=== PATIENT | male | born 1970 ===

== ENCOUNTER 2018-02-26 09:59 | Day surgery (SDC) | payer OTHER ==
[~2018-02-26] VITALS: Ht 165.1 cm; Wt 82.8 kg
[2018-02-26] MEDS ORDERED: fentaNYL INJECTION 100 MCG/2 ML AMP ONE (10:12)
[2018-02-26 10:23] LABS: HEMOGLOBIN 15.5 G/DL (13.3-17.7); MEAN PLATELET VOLUME 9.5 FL (7.4-10.4); RED BLOOD COUNT 4.81 10^6/uL (4.35-5.85); RED CELL DISTRIBUTION WIDTH 13.8 % (10.0-14.5); WHITE BLOOD COUNT 6.7 10^3/uL (4.3-11.0)
[2018-02-26] MEDS ORDERED: CLINDAMYCIN 900 MG/50 ML IVPB 50 ML IV ONE (10:30)
[2018-02-26] MEDS ORDERED: fentaNYL INJECTION 100 MCG/2 ML AMP IVP ONE (10:30)
--- NOTE | 2018-02-26 10:30 | ED Trauma-Multisystem ---
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 The saw blade kicked back and struck him in the face causing injury to the nose, upper lip, lower lip, and teeth. The lips are gaping from the large lacerations. He denies any loss of consciousness. He has no vision changes, nausea, or neck injury. He denies injury anywhere other than his face. Type I trauma activation was paged due to the extensive tissue injury to the face. Occurred: Just Prior to Arrival Allergies and Home Medications Allergies Coded Allergies: No Known Drug Allergies (Unverified , 02/26/18) Home Medications Amoxicillin/Potassium Clav 1 Each Tablet, 1 EACH PO BID Prescribed by: LILIA ODOM on 02/26/18 165 Docusate Sodium 100 Mg Capsule, 100 MG PO DAILY Prescribed by: LILIA ODOM on 02/26/18 1650 Hydrocodone/Acetaminophen 1 Each Tablet, 1 EACH PO Q4H Prescribed by: LILIA ODOM on 02/26/18 1650 Patient Home Medication List Home Medication List Reviewed: Yes Review of Systems Constitutional: no symptoms reported Eyes: No Symptoms Reported Ears: No Symptoms Reported Nose: See HPI Mouth: See HPI Throat: No Symptoms to Report Respiratory: no symptoms reported Cardiovascular: No Symptoms Reported Gastrointestinal: no symptoms reported Genitourinary: no symptoms reported Musculoskeletal: see HPI Skin: see HPI Psychiatric/Neurological: No Symptoms Reported Past Laibjcv-Pqujsx-Zdzxtx Hx Past Med/Social Hx: Reviewed and Corrections made Past Medical History Surgeries: No Respiratory: No Cardiac: No Neurological: No Reproductive Disorders: No Gastrointestinal: No Musculoskeletal: No Endocrine: No HEENT: No Cancer: No Psychosocial: No Integumentary: No Physical Exam Height, Weight, BMI Height: '" Weight: lbs. oz. kg; BMI Method: General Appearance: WD/WN, Mild Distress Head: Other (large laceration extending from the cartilaginous tissue of the right nose through the upper and lower lips. The upper and lower lips are completely from a vertical laceration. There is also damage to the upper and lower incisors. Wounds are bloody but there is no significant active bleeding at this time.) Eyes: Bilateral Eye Normal Inspection, Bilateral Eye PERRL, Bilateral Eye EOMI Ears, Nose, Throat: Hearing Grossly Normal, Dental Injury Neck: Normal Inspection, Non Tender, Supple Cardiovascular: Regular Rate, Rhythm, No Edema, No Murmur Respiratory: Lungs Clear, Normal Breath Sounds, No Accessory Muscle Use, No Respiratory Distress Gastrointestinal: Non Tender, Soft Extremity: Normal Capillary Refill, Normal Inspection, Non Tender Neurologic/Psychiatric: Alert, Oriented x3, No Motor/Sensory Deficits, Normal Mood/Affect, solar tech II-XII Norm as Tested Skin: Normal Color, Warm/Dry Progress/Results/Core Measures Results/Orders Lab Results Laboratory Tests Test 02/26/18 10:10 Range/Units White Blood Count 6.7 4.3-11.0 10^3/uL Red Blood Count 4.81 4.35-5.85 10^6/uL Hemoglobin 15.5 13.3-17.7 G/DL Hematocrit 43 40-54 % Mean Corpuscular Volume 90 80-99 FL Mean Corpuscular Hemoglobin 32 25-34 PG Mean Corpuscular Hemoglobin Concent 36 32-36 G/DL Red Cell Distribution Width 13.8 10.0-14.5 % Platelet Count 285 130-400 10^3/uL Mean Platelet Volume 9.5 7.4-10.4 FL Sodium Level 137 135-145 MMOL/L Potassium Level 3.7 3.6-5.0 MMOL/L Chloride Level 106 98-107 MMOL/L Carbon Dioxide Level 23 21-32 MMOL/L Anion Gap 8 5-14 MMOL/L Blood Urea Nitrogen 17 7-18 MG/DL Creatinine 0.94 0.60-1.30 MG/DL Estimat Glomerular Filtration Rate > 60 BUN/Creatinine Ratio 18 Glucose Level 122 H 70-105 MG/DL Calcium Level 9.1 8.5-10.1 MG/DL Total Bilirubin 0.9 0.1-1.0 MG/DL Direct Bilirubin 0.3 0.0-0.3 MG/DL Indirect Bilirubin 0.6 MG/DL Aspartate Amino Transf (AST/SGOT) 23 5-34 U/L Alanine Aminotransferase (ALT/SGPT) 22 0-55 U/L Alkaline Phosphatase 55 40-136 U/L Total Protein 7.4 6.4-8.2 GM/DL Albumin 4.4 3.2-4.5 GM/DL Serum Alcohol < 10 <10 MG/DL My Orders Orders - MARIANO CHANCE MD Fentanyl Injection (Sublimaze Injection (02/26/18 10:12) Cbc No Diff (02/26/18 10:16) Basic Metabolic Panel (02/26/18 10:16) Liver Panel (02/26/18 10:16) Alcohol (02/26/18 10:16) Type And Screen (02/26/18 10:16) Chest 1 View, Ap/Pa Only (02/26/18 10:16) End Tidal Co2 (02/26/18 10:16) Monitor-Rhythm Ecg Trace Only (02/26/18 10:16) Saline Lock/Iv-Start (02/26/18 10:16) Fentanyl Injection (Sublimaze Injection (02/26/18 10:30) Ct Head/Face/Cervical Wo (02/26/18 10:16) Clindamycin 900 Mg/50 Ml Ivpb (Cleocin P (02/26/18 10:30) Ns (Ivpb) (Sodium C... W/Tranexamic Acid (02/26/18 10:45) Tranexamic Acid Injection (Cyklokapron I (02/26/18 10:45) Lidocaine 1% Inj 20 Ml (Xylocaine 1% Inj (02/26/18 11:06) Bupivacaine 0.25% Injection (Sensorcaine (02/26/18 11:06) Succinylcholine Injection (Succinylcholi (02/26/18 11:41) Rocuronium 5 Ml Syringe (Rocuronium 5 Ml (02/26/18 11:41) Propofol Injection (Diprivan Injection) (02/26/18 11:41) Dexamethasone Injection (Decadron Inject (02/26/18 11:41) Ondansetron Injection (Zofran Injectio (02/26/18 11:41) Lidocaine 2% Pf 5 Ml (Xylocaine 2% Pf) (02/26/18 11:41) Sevoflurane (15 Min) Inhal Edwige (Ultane ( (02/26/18 11:41) Midazolam Injection (Versed Injection) (02/26/18 11:41) Fentanyl Injection (Sublimaze Injection (02/26/18 11:42) Cefazolin Injection (Ancef Injection) (02/26/18 11:55) Ns (Ivpb) (Sodium Chloride 0.9% Ivpb Bag (02/26/18 11:55) Progress Progress Note : Time: 10:31 Progress Note Type I trauma activation was paged. Dr. Guo and Dr. Odom presented immediately to the emergency room. Patient was assessed. Moist dressings were placed over the wounds. Patient was interviewed using business services sales agent. Patient was sent to CT and x-ray. TXA will be administered. Surgery is anticipated after review of the CT. Dr. Brown was contacted and is not available today. Dr. Bowden is out of town. Patient received fentanyl for pain. Clindamycin will be given for initial antibiotic prophylaxis. Patient was reportedly up-to- date on his tetanus. Diagnostic Imaging Diagonstic Imaging: CT Plain Films/CT/US/NM/MRI: facial bones, c-spine, head Comments CT of the head, face, and cervical spine viewed by me and report reviewed. See report below: NAME: ERICKSON EPPS [facility] REC#: [id number] PT STATUS: REG [facility] [place] : 1970 PHYSICIAN: MARIANO CHANCE MD ADMIT DATE: 02/26/18/[facility] [place] Signed Date of Exam: 02/26/18 CT HEAD/FACE/CERVICAL WO PROCEDURE: CT head, face, and cervical spine without contrast. TECHNIQUE: Multiple contiguous axial images were obtained through the head, neck, and facial bones without the use of intravenous contrast. Sagittal and coronal reformations through the cervical spine and facial bones were also performed. INDICATION: Saw injury to the face. No prior studies are available for comparison. CT head: Ventricles and sulci are within normal limits. No sulcal effacement, midline shift or hemorrhage is detected. The cisterns are patent. Visualized paranasal sinuses are clear. IMPRESSION: No acute intracranial process is detected. CT cervical spine: Curvature and alignment is normal. There is generalized degenerative disc disease with variable disc space narrowing and marginal spurring. No fracture is identified. The odontoid is intact. IMPRESSION: No acute bony abnormality is detected. CT face: The mandible is intact. The zygomatic arches are intact. Maxillary sinus belle and orbital belle appear intact. There is midline soft tissue defect that commences at the level of the mandible and extends cephalad. There appears to be a fracture a midline mandibular tooth. There may also be a fracture of a right paramidline maxillary tooth. The anterior nasal spine and hard palate are intact. Nasal septum is intact. There appears to be a tiny chip fracture of right nasal bone. Soft tissue injury extends to the right nares. Both globes are intact. IMPRESSION: Midline soft tissue injury from the chin to the nose with fracture maxillary and mandibular teeth. No other facial bone fractures are identified. Dictated by: Dictated on workstation # [id number] Dict: 02/26/18 1058 Trans: 02/26/18 1509 Interpreted by: GABRIELA ACKERMAN MD Electronically signed by: GABRIELA ACKERMAN MD 02/26/18 1509 Diagonstic Imaging: Xray Plain Films/CT/US/NM/MRI: chest Comments NAME: ERICKSON EPPS [facility] REC#: [id number] PT STATUS: REG [facility] [place] : 1970 PHYSICIAN: MARIANO CHANCE MD ADMIT DATE: 02/26/18/[facility] [place] Signed Date of Exam: 02/26/18 CHEST 1 VIEW, AP/PA ONLY INDICATION: Injury. FINDINGS: An upright portable view of the chest was obtained. The heart size is normal. The pulmonary vessels appear unremarkable. There is no pneumothorax, mediastinal widening, or pleural fluid. The lungs are clear. IMPRESSION: Negative chest. Dictated by: Dictated on workstation # [id number] Dict: 02/26/18 1049 Trans: 02/26/18 1253 Interpreted by: SUZE MOLINA DO Electronically signed by: SUZE MOLINA DO 02/26/18 1253 Departure Communication (Admissions) Time/Spoke to Admitting Phy: 10:10 Impression Primary Impression: Facial laceration Qualified Codes: S01.81XA - Laceration without foreign body of other part of head, initial encounter Additional Impression: Fractured tooth Qualified Codes: S02.5XXB - Fracture of tooth (traumatic), initial encounter for open fracture Disposition: ADMITTED INPATIENT Condition: Improved Admissions Decision to Admit Reason: Admit from ER (Trauma) Decision to Admit/Date: Feb 26, 2018 Time/Decision to Admit Time: 10:10 Departure-Patient Inst. Referrals: NO,LOCAL PHYSICIAN (PCP/Family) Primary Care Physician Scripts Docusate Sodium (Colace) 100 Mg Capsule 100 MG PO DAILY, #30 CAP Prov: LILIA ODOM DO 02/26/18 Hydrocodone/Acetaminophen (Vicodin 5-300 mg Tablet) 1 Each Tablet 1 EACH PO Q4H, #30 TAB Prov: LILIA ODOM DO 02/26/18 Amoxicillin/Potassium Clav (Augmentin 875-125 Tablet) 1 Each Tablet 1 EACH PO BID, #20 TAB Prov: LILIA ODOM DO 02/26/18 MARIANO CHANCE MD Feb 26, 2018 10:30
[2018-02-26 10:43] LABS: ALANINE AMINOTRANSFERASE 22 U/L (0-55); ALBUMIN 4.4 GM/DL (3.2-4.5); ALKALINE PHOSPHATASE 55 U/L (40-136); BILIRUBIN,DIRECT 0.3 MG/DL (0.0-0.3); BILIRUBIN,INDIRECT 0.6 MG/DL; BILIRUBIN,TOTAL 0.9 MG/DL (0.1-1.0); BUN/CREATININE RATIO 18; CALCIUM 9.1 MG/DL (8.5-10.1); CARBON DIOXIDE 23 MMOL/L (21-32); CHLORIDE 106 MMOL/L (98-107); CREATININE SERUM 0.94 MG/DL (0.60-1.30); GFR ESTIMATED > 60; GLUCOSE 122 MG/DL (70-105); POTASSIUM 3.7 MMOL/L (3.6-5.0); SODIUM 137 MMOL/L (135-145); TOTAL PROTEIN 7.4 GM/DL (6.4-8.2)
[2018-02-26] MEDS ORDERED: TRANEXAMIC ACID INJECTION 1,000 MG in NS (IVPB) 250 ML IV SCH (10:45)
[2018-02-26] MEDS ORDERED: TRANEXAMIC ACID INJECTION 1,000 MG in D5W 100 ML IVPB 100 ML IV ONE (10:45)
--- NOTE | 2018-02-26 10:52 | Diagnostic Imaging Report ---
INDICATION: Injury. FINDINGS: An upright portable view of the chest was obtained. The heart size is normal. The pulmonary vessels appear unremarkable. There is no pneumothorax, mediastinal widening, or pleural fluid. The lungs are clear. IMPRESSION: Negative chest. Dictated by: Dictated on workstation # [id number]
--- NOTE | 2018-02-26 11:05 | Diagnostic Imaging Report ---
PROCEDURE: CT head, face, and cervical spine without contrast. TECHNIQUE: Multiple contiguous axial images were obtained through the head, neck, and facial bones without the use of intravenous contrast. Sagittal and coronal reformations through the cervical spine and facial bones were also performed. INDICATION: Saw injury to the face. No prior studies are available for comparison. CT head: Ventricles and sulci are within normal limits. No sulcal effacement, midline shift or hemorrhage is detected. The cisterns are patent. Visualized paranasal sinuses are clear. IMPRESSION: No acute intracranial process is detected. CT cervical spine: Curvature and alignment is normal. There is generalized degenerative disc disease with variable disc space narrowing and marginal spurring. No fracture is identified. The odontoid is intact. IMPRESSION: No acute bony abnormality is detected. CT face: The mandible is intact. The zygomatic arches are intact. Maxillary sinus belle and orbital belle appear intact. There is midline soft tissue defect that commences at the level of the mandible and extends cephalad. There appears to be a fracture a midline mandibular tooth. There may also be a fracture of a right paramidline maxillary tooth. The anterior nasal spine and hard palate are intact. Nasal septum is intact. There appears to be a tiny chip fracture of right nasal bone. Soft tissue injury extends to the right nares. Both globes are intact. IMPRESSION: Midline soft tissue injury from the chin to the nose with fracture maxillary and mandibular teeth. No other facial bone fractures are identified. Dictated by: Dictated on workstation # [id number]
[2018-02-26] MEDS ORDERED: LIDOCAINE 1% INJ 20 ML 20 ML VIAL ONE (11:06)
[2018-02-26] MEDS ORDERED: BUPIVACAINE 0.25% 30 ML (SENSORCAINE) VIAL ONE (11:06)
[2018-02-26] MEDS: LACTATED RINGERS 1,000 ML IV PRN ×4 (11:30→14:35)
[2018-02-26] MEDS ORDERED: ROCURONIUM 10 MG/ML 5 ML SYRINGE IV ONE (11:41)
[2018-02-26] MEDS ORDERED: SEVOFLURANE (ULTANE) 15 ML INHAL SOLN ONE ×4 (11:41→13:59)
[2018-02-26] MEDS ORDERED: SUCCINYLCHOLINE INJ 100 MG/5 ML SYR ONE (11:41)
[2018-02-26] MEDS ORDERED: proPOfol 200 MG/20 ML (DIPRIVAN) VIAL IV ONE (11:41)
[2018-02-26] MEDS ORDERED: MIDAZOLAM 2 MG/2 ML (VERSED) VIAL ONE (11:41)
[2018-02-26] MEDS ORDERED: DEXAMETHASONE 10 MG/ML (DECADRON) 1 ML VIAL ONE (11:41)
[2018-02-26] MEDS ORDERED: LIDOCAINE PF 2% 5 ML (XYLOCAINE) VIAL ONE (11:41)
[2018-02-26] MEDS ORDERED: ONDANSETRON 4 MG/2 ML (SDV) Z0FRAN ONE (11:41)
[2018-02-26] MEDS ORDERED: fentaNYL INJECTION 250 MCG/5 ML AMP ONE (11:42)
[2018-02-26] MEDS ORDERED: NS (IVPB) 100 ML ONE (11:55)
[2018-02-26] MEDS ORDERED: ceFAZolin 1,000 MG (ANCEF) VIAL ONE (11:55)
--- NOTE | 2018-02-26 12:08 | History & Physical-Surgical ---
History of Present Illness History of Present Illness Reason for visit/HPI Level 1 Trauma seen and evaluated in ED. Injury occurred just prior to arrival. 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 It bounced back and struck him in the face while using it. Caused laceration from chin up to nose. Teeth at midline fractured. No loss of consciousness. No neck injury. No complaint of pain except pain on face which is moderate. Chest x ray negative, and ct head neck and face demonstrating no acute fractures except fracture of maxillary and mandibular teeth fracture, Negative ct c spine and head. Date of Admission T Date Seen by Provider: Feb 26, 2018 Time Seen by Provider: 10:09 I consulted on this patient on 02/26/18 10:09 Attending Physician Admitting Physician No,Local Physician Consult Allergies and Home Medications Allergies Coded Allergies: No Known Drug Allergies (Unverified , 02/26/18) Patient Home Medication List Home Medication List Reviewed: Yes Past Kfuaqio-Fxoovd-Bgnqpb Hx Patient Social History Alcohol Use: Denies Use Recreational Drug Use: No Smoking Status: Never a Smoker Surgeries History of Surgeries: No Respiratory History of Respiratory Disorde: No Cardiovascular History of Cardiac Disorders: No Neurological History of Neurological Disord: No Reproductive System Hx Reproductive Disorders: No Gastrointestinal History of Gastrointestinal Di: No Musculoskeletal History of Musculoskeletal Dis: No Endocrine History of Endocrine Disorders: No HEENT History of HEENT Disorders: No Cancer History of Cancer: No Psychosocial History of Psychiatric Problem: No Integumentary History of Skin or Integumenta: No Family Medical History Significant Family History: No Pertinent Family Hx Constitutional: no symptoms reported EENTM: no symptoms reported Respiratory: no symptoms reported Cardiovascular: no symptoms reported Gastrointestinal: no symptoms reported Genitourinary: no symptoms reported Musculoskeletal: see HPI Skin: see HPI Psychiatric/Neurological: No Symptoms Reported Physical Exam Vital Signs Capillary Refill : Height, Weight, BMI Height: '" Weight: lbs. oz. 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 Norm as Tested Skin: Normal Color (skin lacerations complex nose down to chin) Lymphatic: No Adenopathy Data Review Labs Laboratory Tests 02/26/18 10:10: White Blood Count 6.7, Red Blood Count 4.81, Hemoglobin 15.5, Hematocrit 43, Mean Corpuscular Volume 90, Mean Corpuscular Hemoglobin 32, Mean Corpuscular Hemoglobin Concent 36, Red Cell Distribution Width 13.8, Platelet Count 285, Mean Platelet Volume 9.5, Sodium Level 137, Potassium Level 3.7, Chloride Level 106, Carbon Dioxide Level 23, Anion Gap 8, Blood Urea Nitrogen 17, Creatinine 0.94, Estimat Glomerular Filtration Rate > 60, BUN/Creatinine Ratio 18, Glucose Level 122H, Calcium Level 9.1, Total Bilirubin 0.9, Direct Bilirubin 0.3, Indirect Bilirubin 0.6, Aspartate Amino Transf (AST/SGOT) 23, Alanine Aminotransferase (ALT/SGPT) 22, Alkaline Phosphatase 55, Total Protein 7.4, Albumin 4.4, Serum Alcohol < 10 Assessment/Plan Assessment/Plan Admission Diagonsis complex facial laceration right nose to chin fracture of maxillary and mandibular teeth concrete saw striking face level 1 Trauma Admission Status: Observation Assessment/Plan complex facial laceration right nose to chin fracture of maxillary and mandibular teeth concrete saw striking face ct head face and neck with above findings discussed risks and benefits of repair of complex facial laceration ENT and Maxillofacial unavailable. Patient understands may need further specialist surgical intervention at later date. Patient in agreement with plan. LILIA ODOM DO Feb 26, 2018 12:08
[2018-02-26] MEDS ORDERED: BSS 15 ML ONE (12:35)
[2018-02-26] MEDS ORDERED: GLYCOPYRROLATE 0.2 MG/ML (ROBINUL) 2 ML VIAL ONE (13:15)
[2018-02-26] MEDS ORDERED: PHENYLEPHRINE 100 MCG/ML 10 ML (ANESTHESIA) SYR ONE (13:16)
[2018-02-26] MEDS ORDERED: ARTIFICIAL TEARS OINT (LACRI-LUBE) 3.5 GM TUBE ONE (13:17)
[2018-02-26] MEDS ORDERED: METOCLOPRAMIDE INJ 10 MG/2 ML (REGLAN) ONE (13:34)
[2018-02-26] MEDS ORDERED: NEO/POLY/BAC (NEOSPORIN) OINT 15 GM TUBE ONE (13:50)
[2018-02-26] MEDS ORDERED: fentaNYL INJECTION 100 MCG/2 ML AMP IVP PRN (14:15)
[2018-02-26] MEDS ORDERED: ONDANSETRON 4 MG/2 ML (SDV) Z0FRAN IVP PRN (14:15)
[2018-02-26] MEDS: HYDROmorphone 1 MG/ML (DILAUDID) 1 ML SYRINGE IV PRN ×4 (14:26→14:56)
--- NOTE | 2018-02-26 15:15 | Anesthesia-General Post-Op ---
General Patient Condition Mental Status/LOC: Same as Preop Cardiovascular: Satisfactory Nausea/Vomiting: Absent Respiratory: Satisfactory Pain: Controlled Complications: Absent Post Op Complications Complications None Follow Up Care/Instructions Patient Instructions None needed. Anesthesia/Patient Condition Patient Condition Patient is doing well, no complaints, stable vital signs, no apparent adverse anesthesia problems. No complications reported per nursing. JOSE GRAY CRNA Feb 26, 2018 15:15
[2018-02-26 15:35] VITALS: BP 135/78
[2018-02-26] MEDS ORDERED: morphine INJ 4 MG/ML 1 ML (VIAL/SYRINGE) IVP PRN (16:45)
[2018-02-26] MEDS ORDERED: HYDROcodone/APAP 5 MG/325 MG (LORTAB) TAB PO PRN (16:45)
[2018-02-26] MEDS ORDERED: DOCU-143 PO (16:50)
[2018-02-26] MEDS ORDERED: HYDR-3454 PO (16:50)
[2018-02-26] MEDS ORDERED: AMOX-358 PO (16:50)
--- NOTE | 2018-02-26 16:58 | Discharge Inst-Simple/Standard ---
Discharge Inst-Standard Discharge Medications New, Converted or Re-Newed RX: RX on Chart Patient Instructions/Follow Up Plan of Care/Instructions/FU: [address] Morley Consult with Dr. Brown or other maxillofacial surgeon of your choice for Dental repair. Do not blow your nose. Do not place anything in your nose. Place tripple antibiotics over lacerations on the outside. Full liquid diet for 3 days then advance to soft diet as tolerates. Activity as Tolerated: No Discharge Diet: Liquid Diet Other Inst to Patient Follow up Appt: Make appointment for 1 week (march 05) Dr. Morley Follow up with Dr. Brown or maxillofacial surgeon of your choice in regards to dental needs. Instructions: No lifting greater than 10 pounds. No strenuous activity. May shower in 24 hours, no tub bath or soaking. Use incentive spirometer at home as directed. No Smoking Skin/Wound Care: Keep clean and dry. Symptoms to Report: Appetite Changes, Extremity Discoloration, Numbness/Tingling, Swelling Increased , Bleeding Excessive, Eyesight Changes, Pain Increased, Urine Color Change, Constipation(Persistent), Fever over 101 degree F, Pain/Pressure in chest, Urinating Difficulty, Cough Up/Vomit Blood, Heart Beat Irreg/Pounding, Pain/ Pressure in jaw, Vaginal Bleeding Increase, Cramps in feet or legs, Lightheadedness, Pain/Pressure in shoulder, Diarrhea(Persistent), Memory Changes Suddenly, Questions/Concerns, Weight gain consecutive days, Dizziness/ Fainting, Nausea/Vomiting, Shortness of Breath, Weight gain over 2 pounds If questions or concerns contact your physician Or seek help at emergency department. LILIA MORLEY DO Feb 26, 2018 16:57
[2018-02-26 19:51] VITALS: BP 125/77
[2018-02-26] MEDS: CLINDAMYCIN 600 MG/50 ML IVPB 50 ML IV SCH (21:27)
--- NOTE | 2018-02-26 22:37 | Progress Note-Post Operative ---
Post-Operative Progess Note Surgeon (s)/Hay Rake Operator (s) Surgeon LILIA ODOM DO Hay Rake Operator: na Pre-Operative Diagnosis complex facial laceration Post-Operative Diagnosis complex facial laceration, fracture maxillary and mandibular teeth Procedure & Operative Findings Date of Procedure 02/26/18 Procedure Performed/Findings reconstruction right nose with skin length 5 cm layered closure, maxillary laceration repair inner oral length 2.5 cm, skin length 2.5 cm c layered closure , mandibular soft tissue removal foreign body, mandibular inner laceration repair 3.25 cm outer skin reparir 3.5 cm layered, partial extraction tooth #41 Anesthesia Type general Estimated Blood Loss Estimated blood loss (mL): min Specimens/Packing Specimens Removed LILIA Bauman DO Feb 26, 2018 22:37
[2018-02-27 00:13] VITALS: BP 121/72
[2018-02-27 03:47] VITALS: BP 111/60
[2018-02-27] MEDS: CLINDAMYCIN 600 MG/50 ML IVPB 50 ML IV SCH (05:55)
[2018-02-27 08:00] VITALS: BP 115/69
--- NOTE | 2018-02-27 10:06 | Progress Note ---
Subjective Date Seen by Provider: Feb 27, 2018 Time Seen by Provider: 09:49 Subjective/Events-last exam doing well. no complaints. not having any pain. denies n/v fever sweats chills shortness of breath or chest pain. Objective Exam Vital Signs Date Time Temp Pulse Resp B/P (MAP) Pulse Ox O2 Delivery O2 Flow Rate FiO2 02/27/18 08:00 99.6 81 18 115/69 (84) 95 Room Air 02/27/18 03:47 98.3 78 16 111/60 (77) 96 Room Air 02/27/18 00:13 97.9 87 16 121/72 (88) 96 Room Air 02/26/18 19:51 98.2 93 16 125/77 (93) 96 Room Air 02/26/18 15:35 98.6 83 16 135/78 (97) 94 Room Air 02/26/18 12:10 87 22 151/92 97 02/26/18 10:04 99.2 73 20 139/88 (105) 98 Room Air I & O 02/27/18 07:00 Intake Total 4030 ml Balance 4030 ml Capillary Refill : Less Than 3 Seconds General Appearance: No Apparent Distress HEENT: PERRL/EOMI, Other (repairs from nose down to chin, no signs of infection ) Neck: Non Tender, Supple Respiratory: No Accessory Muscle Use, No Respiratory Distress Cardiovascular: Regular Rate, Rhythm Gastrointestinal: non tender, soft Extremity: Normal Range of Motion, Non Tender Neurologic/Psychiatric: Alert, Oriented x3, No Motor/Sensory Deficits, Normal Mood/Affect, 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 Norm as Tested Skin: Normal Color (lacerations repaired no signs of infection) Lymphatic: No Adenopathy Results Lab Laboratory Tests 02/26/18 10:10: White Blood Count 6.7, Red Blood Count 4.81, Hemoglobin 15.5, Hematocrit 43, Mean Corpuscular Volume 90, Mean Corpuscular Hemoglobin 32, Mean Corpuscular Hemoglobin Concent 36, Red Cell Distribution Width 13.8, Platelet Count 285, Mean Platelet Volume 9.5, Sodium Level 137, Potassium Level 3.7, Chloride Level 106, Carbon Dioxide Level 23, Anion Gap 8, Blood Urea Nitrogen 17, Creatinine 0.94, Estimat Glomerular Filtration Rate > 60, BUN/Creatinine Ratio 18, Glucose Level 122H, Calcium Level 9.1, Total Bilirubin 0.9, Direct Bilirubin 0.3, Indirect Bilirubin 0.6, Aspartate Amino Transf (AST/SGOT) 23, Alanine Aminotransferase (ALT/SGPT) 22, Alkaline Phosphatase 55, Total Protein 7.4, Albumin 4.4, Serum Alcohol < 10 Assessment/Plan Assessment/Plan Assessment/Plan complex facial laceration right nose to chin fracture of maxillary and mandibular teeth concrete saw striking face-facial trauma reconstruction of right nose and complex facial lacerations repair, partial removal tooth #41, elodia doing well no issues dc home today with close follow up Clinical Quality Measures DVT/VTE Risk/Contraindication: Risk Factor Score Per Nursin RFS Level Per Nursing on Admit: 2=Moderate LILIA ODOM DO Feb 27, 2018 10:06
--- NOTE | 2018-03-03 23:34 | OPERATIVE REPORT ---
DATE OF SERVICE: 02/26/2018 PREOPERATIVE DIAGNOSIS: Complex facial laceration. POSTOPERATIVE DIAGNOSES: Complex facial laceration, fracture of maxillary and mandibular teeth and foreign body, soft tissue lower lip. PROCEDURE PERFORMED: Reconstruction of the right nose with skin layer closure 5 cm and maxillary laceration repair of oral mucosa, length 2.5 cm with skin length being 2.5 cm with layered closure and mandibular soft tissue, removal of foreign body with mandibular oral laceration repair 3.25 cm and outer skin repair 3.5 cm with layered closure and partial extraction of tooth #41. SURGEON: Alok Morley DO. ANESTHESIA: General. ESTIMATED BLOOD LOSS: Minimal. COMPLICATIONS: None. INDICATIONS: The patient is a 47-year-old male who presented as a level 1 trauma who had a concrete saw, striking him in his face causing a complex laceration, affecting the right side of his nose, upper lip and lower lip of the face, did have maxillary and mandibular fractures of teeth, but no other fractures. The patient was explained risks and benefits of procedure and wished to proceed with procedure. Consent was signed in the chart. DESCRIPTION OF PROCEDURE: The patient was taken to the operating suite, was prepped and draped in sterile fashion. Surgical pause was performed. Wounds were irrigated with copious amounts of irrigation. The right side of his nose was completely split open and being able to spread this apart and visualized the turbinates. The turbinates had normal appearance with no injury. The wound was irrigated with copious amounts of irrigation. At this point, the right nose was reconstructed using 4-0 chromic sutures in interrupted fashion. The inner portion of the nose was reapproximated. At this point, did cartilaginous repair using 4-0 chromic repair the lateral cartilage of the right nose along with the greater alar cartilage of the right side of the nose. The skin was then closed using 5-0 Prolene in simple interrupted fashion. The right nostril sill that was cut was also reapproximated to the columella. The inner repair length was 4.5 cm with the outer skin length being 5 cm. The repair then continued into the maxillary ridge over the upper lip area, which was full thickness. The wound was irrigated with copious amounts of irrigation and suction. The oral repair was 2.5 cm in length and was closed using 4-0 chromic. This was continued onto the lip recreating the vermilion border. The deep tissues were also reapproximated using the 4-0 chromic. The skin was closed using 5-0 Prolene. Before closure, this was irrigated and suctioned with copious amounts of irrigation and continued to be done during the repair as well. The wound on the mandibular or lower lip was also a complete through laceration. The wound was irrigated with copious amounts of irrigation. There was a metallic foreign body within a portion of the soft tissue, which was then able to be grasped and removed. The wound was then continued to be irrigated and suctioned. The oral portion of the laceration was repaired with a total length of 3.25 cm also using 4-0 chromic and recreating the vermilion border, deep sutures were placed within the wound with 4-0 chromic as well. The skin was then closed with a total length 3.5 cm with 5-0 Prolene. A tooth #41 was partially fractured. There is concern that this would be an issue later for him in terms of breaking and could become a problem for him. Therefore, this was grasped with hemostats and was then partially extracted. The incisions were then washed and dried and triple antibiotic ointment placed over the outer incisions. The patient tolerated the procedure well without any complications. He was taken to the recovery room in stable condition. RECOMMENDATIONS: The patient will be admitted for observation overnight and pain control. The patient will also have followup with maxillofacial surgery or dentist for further oral care needs. Job ID: [id number] DocumentID: [id number] Dictated Date: 03/03/2018 17:17:18 Tree Puller Date: 03/03/2018 23:34:17 Dictated By: DO ANNALISE EVANS
== END 2018-02-27 11:05 | disposition home or self-care (01) ==
LOC: ER 10:08 → EDBD 10:08 → 4TH 12:14 → SDC 12:14 → 4TH 15:30 → UNDOADMOB 15:30 → UNDODISOB 02-27 11:05 → SDC 02-27 11:05
PROVIDERS: ATTEND Surgery
DX: S01.511A Laceration without foreign body of lip, initial encounter (principal); S01.21XA Laceration without foreign body of nose, initial encounter; S01.512A Laceration without foreign body of oral cavity, initial encounter; S02.5XXA Fracture of tooth (traumatic), initial encounter for closed fracture; W31.2XXA Contact with powered woodworking and forming machines, initial encounter; Y99.0 Civilian activity done for income or pay
CPT/HCPCS: 36415; 70450; 70486; 71045; 72125; 80048; 80076; 80320; 85027; 86850; 86900; 86901; 93041; 96361; 96365; 96375; 99291; 99292

== ENCOUNTER 2018-03-05 08:52 | Emergency (ER) | payer OTHER ==
[~2018-03-05 08:52] MED LIST: AMOX-358 PO; DOCU-143 PO; HYDR-3454 PO
== END 2018-03-05 09:30 | disposition home or self-care (01) ==
LOC: EDUNIT# 08:52 → ER 08:55
DX: Z48.02 Encounter for removal of sutures (principal)